=== PATIENT | male | born 1980 ===

== ENCOUNTER 2018-08-19 11:15 | Day surgery (SDC) | payer OTHER ==
[2018-08-16 15:04] VITALS: BMI 37.0
[~2018-08-19 11:15] MED LIST: HYDROmorphone 0.5 MG/0.5 ML SYRINGE IVP PRN; LACTATED RINGERS 1,000 ML IV SCH; Pre Op ABX Message 1 EACH MISC MISCELLANE ONE
[2018-08-19 11:28] VITALS: TEMP 97.8
[2018-08-19] MEDS ORDERED: LIDOCAINE 1% 20 ML VIAL (10MG/ML) FOR IV START INTRADERMA ONE (11:54)
[2018-08-19] MEDS ORDERED: ONDANSETRON 4 MG/2 ML VIAL IVP ONE (11:54)
[2018-08-19] MEDS ORDERED: DEXAMETHASONE SOD PHOSPHATE 10 MG/ML 1 ML VIAL IV ONE (11:55)
[2018-08-19] MEDS ORDERED: PROPOFOL 10 MG/ML 20 ML VIAL IV ONE (12:32)
[2018-08-19] MEDS ORDERED: MIDAZOLAM 2 MG/2 ML VIAL ONE (12:32)
[2018-08-19] MEDS ORDERED: fentaNYL (PF) 50 MCG/ML 2 ML AMP ONE (12:32)
[2018-08-19] MEDS ORDERED: KETAMINE 10 MG/ML 20 ML VIAL ONE (12:32)
[2018-08-19] MEDS ORDERED: BUPIVACAINE (PF) 0.5% 30 ML VIAL SQ ONE ×2 (12:53)
[2018-08-19] MEDS ORDERED: LIDOCAINE 1%-EPI 1:100,000 20 ML VIAL SQ ONE ×2 (12:53)
--- NOTE | 2018-08-19 13:53 | P.OP ---
Date of Procedure: 08/19/18 Preoperative Diagnosis: Right carpal tunnel syndrome Postoperative Diagnosis: Right carpal tunnel syndrome Procedure(s) Performed: Right endoscopic carpal tunnel release Anesthesia: MAC, local Surgeon: Morgan Gaines Estimated Blood Loss (ml): 2 Condition: stable Disposition: PACU Indications for Procedure: The patient is a pleasant 37-year-old male who was diagnosed with bilateral carpal tunnel syndrome, right worse than left. Treatment options (and associated risks and benefits) were discussed in the office. The patient elected to proceed with surgical release of the right side. In preop, the patient denied any additional questions or concerns. Consent forms were signed. The surgical site was confirmed and marked preoperatively. Description of Procedure: The patient was positioned supine with the operative limb on an arm board. A tourniquet was placed on the operative arm. Monitored anesthesia was administered uneventfully. A time-out was performed, confirming patient identifiers, the operative side, site and the procedure to be performed: all team members expressed agreement. Using aseptic technique, local anesthetic was injected into the subcutaneous tissues around the planned incision. The right upper extremity was then prepped and draped in standard, sterile fashion. The limb was exsanguinated with an Esmarch and the tourniquet was inflated. Loupe magnification was used throughout the case for optimum visualization. A 1.5 cm transverse incision was marked just proximal to the wrist flexion crease, in line with the radial border of the ring finger. The patient had a previous traumatic laceration when he was a child. The incision stopped at the edge of this healed wound. The skin was sharply incised and the subcutaneous tissues were bluntly spread. These were found to be moderately dense and thickened. The volar carpal fascia was identified and was also quite thick. This was sharply incised. The introitus to the tunnel was quite tight. To facilitate atraumatic exposure, the volar carpal fascia proximal and distal to the incision was released with scissors under direct visualization. A synovial elevator was used to release adhesions on the underside of the transverse carpal ligament. The washboard effect was palpable. A dilator was inserted to sound and enlarge the carpal tunnel. The hamate hook was palpable ulnarly. The side-specific guide and camera were inserted. The transverse carpal ligament was clearly visualized above. The distal edge of the ligament was identified and palpated with a probe. A rasp was used to clear the remaining synovial adhesions. The endoscopic blade was inserted and the distal half of the ligament was sharply incised. This was found to be markedly thickened. Residual distal transverse fibers were released and then the proximal portion of the ligament was divided. Wide release of ligament was visually confirmed. The camera was removed. The tourniquet was released after 23 minutes at 250 mmHg. Good hemostasis was obtained with held pressure. The wound was thoroughly irrigated with normal saline. The incision was closed with interrupted 4-0 Nylon sutures. Additional local anesthetic with epinephrine was injected for adjunctive postoperative pain control and hemostasis. A soft, sterile dressing was applied. All sponge, needle and instrument counts were correct at the end of the case. The patient tolerated the procedure well and was transferred to recovery in stable condition.
[2018-08-19 14:08] VITALS: BP 125/82; PULSE 94; RESP 16
== END 2018-08-19 14:25 | disposition home or self-care (01) ==
LOC: OR 11:15
PROVIDERS: ATTEND Orthopaedic Surgery
DX: G56.03 Carpal tunnel syndrome, bilateral upper limbs (principal); F32.9 Major depressive disorder, single episode, unspecified; Z97.3 Presence of spectacles and contact lenses; R06.02 Shortness of breath; Z83.3 Family history of diabetes mellitus; Z82.49 Family history of ischemic heart disease and other diseases of the circulatory system; Z72.0 Tobacco use
CPT/HCPCS: 29848; J2250; J1100; J2405; J3010; J2704